=== PATIENT | female | born 1955 | race Caucasian/White ===

== ENCOUNTER 2022-05-08 17:38 | Emergency (ER) | payer OTHER | END 2022-05-08 23:15 | disposition home or self-care (01) | LOC: FER 17:38 | DX: S40.811A Abrasion of right upper arm, initial encounter (principal); M79.604 Pain in right leg; Z88.2 Allergy status to sulfonamides; Z88.5 Allergy status to narcotic agent; V47.6XXA Car passenger injured in collision with fixed or stationary object in traffic accident, initial encounter | CPT/HCPCS: 73060; 73502; 73590 ==